=== PATIENT | male | born 1990 | race Caucasian/White ===

== ENCOUNTER 2017-12-18 18:45 | Emergency (ER) | payer SELFPAY ==
[~2017-12-18] VITALS: Ht 170.2 cm; Wt 77.1 kg
--- OUTSIDE RECORDS SUMMARY | 2017-12-18 18:50 | XMS REPORT | Continuity of Care Document ---
Author Author [facility] Organization [facility] Address Unknown Phone Unavailable Allergies There is no data. Medications There is no data. Problems There is no data. Procedures There is no data. Results There is no data. Encounters ACCT No. Visit Date/Time Discharge Status Pt. Type Provider Facility Loc./Unit Complaint [id number] 06/03/2016 10:33:55 ACT Unknown
--- OUTSIDE RECORDS SUMMARY | 2017-12-18 18:50 | XMS REPORT | Continuity of Care Document ---
Author Author Gissel O[facility] Gissel Odom [facility] Address Unknown Phone Unavailable Support Name Relationship Address Phone ABI CORRALES M.D. Caregiver [employer] [address] [place] [address] Unavailable SORIN WAYNE Next Of Kin [address] [facility] [place] [address] Insurance Providers Guarantor Ronen Meyer Address [address] [place] [address] Payer Self Pay Insurance Subscriber's Name Ronen Meyer Relationship 01 Self / Same As Patient Chief Complaint and Reason for Visit Chief Complaint Dental Pain Reason for Visit Dental abscess Problems Active Problems Medical Problem Onset Date Status Testicular pain, left Unknown Acute Past Problems Medical Problem Onset Date Dental abscess Unknown Medications Current Home Medications Medication Dose Units Route Directions Days Qty Instructions Start Date Amoxicillin 500 Mg Tab 500 Mg Oral Three Times A Day for Bactinf 30 Tablet 10/29/16 Hydrocodone-Acetaminophen ([place]) 5/325 Tab 1-2 Tab Oral Q4-6H as needed for Pain 12 Tablet 10/29/16 Social History Social History Problem Response Recorded Date/Time Onset Date Status Smoking Status Heavy Tobacco Smoker 10/29/2016 3:52am Not Applicable Not Applicable Query Response Start Date Stop Date Smoking Status Heavy Tobacco Smoker Hospital Discharge Instructions No hospital discharge instructions. Plan of Care Discharge Date 10/29/16 4:45am Disposition 01 HOME, SELF-CARE Condition at Discharge Stable Instructions/Education Provided Dental Abscess (ED) Prescriptions See Medication Section Additional Instructions/Education 1. Follow up with a dentist as soon as possible. 2. Take antibiotic as prescribed. 3. Use pain medication as needed. 4. Return to ER if worsening pain, increased swelling, fever, or other new concerns. Functional Status No functional status results. Allergies, Adverse Reactions, Alerts No known allergies. Immunizations No immunization records. Vital Signs Acute Vital Signs Vital Response Date/Time Blood Pressure 138/68 mm Hg 10/29/2016 3:49am Blood Pressure Mean 91 mm Hg 10/29/2016 3:49am Temperature (Fahrenheit) 97.6 degrees F (96.0 - 99.9) 10/29/2016 3:49am Temperature (Calculated Celsius) 36.26650 degrees C 10/29/2016 3:49am Temperature Source Oral 10/29/2016 3:49am Pulse Pulse Rate: ED 72 bpm 10/29/2016 3:49am Respiratory Rate 16 breaths per minute (10 - 20) 10/29/2016 3:49am Height (Feet) 5 ft 10/29/2016 3:49am Height (Inches) 7.0 in. 10/29/2016 3:49am Weight (Pounds) 180.0 lbs 10/29/2016 3:49am Height 5 ft 7 in 10/29/2016 3:49am Weight 180 lb 10/29/2016 3:49am Body Mass Index 28.2 kg/m^2 10/29/2016 3:49am Results No known relevant diagnostic tests, laboratory data and/or discharge summary. Procedures No known history of procedures. Encounters Encounter Location Arrival/Admit Date Discharge/Depart Date Attending Provider Departed Emergency Room [facility] 10/29/16 3:49am 4:45am ABI CORRALES M.D. Departed Emergency Room [facility] 10/12/14 8:10pm 9:57pm ILA DELATORRE M.D. Recent Diagnosis
[2017-12-18] MEDS ORDERED: RX-AMOX/CLAV. (AUGMENTIN) 500MG TAB PPK#2 PO STA (19:20)
[2017-12-18] MEDS ORDERED: AMOX500C2 PO (19:25)
[2017-12-18] MEDS ORDERED: HYDR-757 PO ×2 (19:25→19:38)
--- NOTE | 2017-12-18 19:26 | ED EENT ---
History of Present Illness General Chief Complaint: Dental Problems/Pain Stated Complaint: R SIDE DENTAL/GUM PAIN, R EAR PAIN Nursing Triage Note: PT PRESENTS TO ER WITH COMPLAINT OF RIGHT SIDED JAW PAIN. STATES HE FEELS LIKE HE HAS A BROKEN TOOTH. HAS NOT BEEN TO A DENTIST. Source: patient Exam Limitations: no limitations History of Present Illness Date Seen by Provider: Dec 18, 2017 Time Seen by Provider: 19:21 Initial Comments To ER with Right lower dental pain and jaw swelling x2 days, no fever. Timing/Duration: gradual Severity: moderate Location: mouth, dental Associated Symptoms: facial pain/swelling, tooth pain Allergies and Home Medications Allergies Coded Allergies: No Known Drug Allergies (Unverified , 12/18/17) Home Medications Amoxicillin 500 Mg Capsule, 500 MG PO TID Prescribed by: ARLYN LOPEZ on 12/18/171924 Hydrocodone/Acetaminophen 1 Each Tablet, 1 EACH PO Q4H PRN for PAIN-SEVERE Prescribed by: ARLYN LOPEZ on 12/18/171924 Patient Home Medication List Home Medication List Reviewed: Yes Review of Systems Constitutional: see HPI Eyes: No Symptoms Reported Ears: No Symptoms Reported Nose: no symptoms reported Mouth: see HPI, pain Respiratory: no symptoms reported Cardiovascular: no symptoms reported Musculoskeletal: no symptoms reported Skin: no symptoms reported Past Dpovjvb-Fskntk-Svrudx Hx Patient Social History Alcohol Use: Denies Use Recreational Drug Use: Yes Drug of Choice: MARIJUANA Smoking Status: Current Everyday Smoker Recent Foreign Travel: No Contact w/Someone Who Travel: No Recent Infectious Disease Expo: No Recent Hopitalizations: No Immunizations Up To Date Tetanus Booster (TDap): Unknown Seasonal Allergies Seasonal Allergies: No Past Medical History Surgeries: Yes (HERNIA RX) Orthopedic Respiratory: No Cardiac: No Neurological: No Genitourinary: No Gastrointestinal: Yes Abdominal Hernia Musculoskeletal: No Endocrine: No HEENT: No Cancer: No Psychosocial: No Integumentary: No Blood Disorders: No Physical Exam Vital Signs Vital Signs - First Documented 12/18/17 19:03 Temp 98.6 Pulse 92 Resp 20 B/P (MAP) 133/83 (100) Pulse Ox 98 O2 Delivery Room Air General Appearance: WD/WN, no apparent distress Eyes: bilateral eye normal inspection, bilateral eye PERRL, bilateral eye EOMI Ears: bilateral ear auricle normal, bilateral ear canal normal, bilateral ear TM normal Mouth/Throat: other (there is a palpable fluctuant abscess to right buccal mucosa. ) Neck: non-tender, full range of motion Gastrointestinal: non tender, soft Neurologic/Psychiatric: alert, normal mood/affect, oriented x 3 Skin: normal color, warm/dry Procedures/Interventions I&D : Blade Size: 10 Progress Inferior alveolar nerve block done with 1ml of 2% lidocaine with epi and 0.5ml of marcaine 0.5%. Incision made with 11 blade scalpel, large amount of purulent material expressed. Covered with gauze and hemostasis achieved Progress/Results/Core Measures My Orders Orders - ARLYN LOPEZ APRN Lidocaine/Epi 2% 1:100,000 (Xylocaine/Ep (12/18/17 19:30) Bupivacaine 0.5% Injection (Sensorcaine (12/18/17 19:30) Hydrocodone/Apap 5/325 Tablet (Lortab 5 (12/18/17 19:30) Rx-Amoxicillin/Clav Tab (Rx-Augmentin Ta (12/18/17 19:20) Medications Given in ED Current Medications Medications Dose Ordered Sig/Amparo Route Start Time Stop Time Status Last Admin Dose Admin Acetaminophen/ Hydrocodone Bitart 1 tab ONCE ONCE PO 12/18/17 19:30 18 19:31 DC 12/18/17 19:31 1 TAB Bupivacaine HCl 1 ml ONCE ONCE INJ 12/18/17 19:30 12/18/17 19:31 DC 12/18/17 19:31 1 ML Lidocaine/ Epinephrine 1 ml ONCE ONCE INJ 12/18/17 19:30 12/18/17 19:31 DC 12/18/17 19:31 1 ML Vital Signs/I&O 12/18/17 19:03 Temp 98.6 Pulse 92 Resp 20 B/P (MAP) 133/83 (100) Pulse Ox 98 O2 Delivery Room Air Blood Pressure Mean: 100 Departure Impression Primary Impression: Dental abscess Disposition: 01 HOME, SELF-CARE Condition: Stable Departure-Patient Inst. Decision time for Depature: 19:24 Referrals: NO,LOCAL PHYSICIAN (PCP/Family) Primary Care Physician Patient Instructions: Tooth Abscess (DC) Add. Discharge Instructions: 1. Return to ER for any concerns such as fevers 2. Antibiotics as directed 3. See your dentist LEO All discharge instructions reviewed with patient and/or family. Voiced understanding. Scripts Hydrocodone/Acetaminophen ([place] 5-325 Tablet) 1 Each Tablet 1 EACH PO Q4H PRN for PAIN-SEVERE, #14 TAB Do not fill unless amoxicillin is also filled. Prov: ARLYN LOPEZ APRN 12/18/17 Amoxicillin (Amoxicillin) 500 Mg Capsule 500 MG PO TID, #30 CAP Prov: ARLYN LOPEZ APRN 12/18/17 Work/School Note: Work Release Form Date Seen in the Emergency Department: Dec 18, 2017 Return to Work: Dec 20, 2017 ARLYN LOPEZ APRN Dec 18, 2017 19:26
[2017-12-18] MEDS ORDERED: BUPIVACAINE 0.5% 30 ML (SENSORCAINE) VIAL INJ ONE (19:30)
[2017-12-18] MEDS ORDERED: HYDROcodone/APAP 5 MG/325 MG (LORTAB) TAB PO ONE (19:30)
[2017-12-18] MEDS ORDERED: LIDOCAINE/EPI 2% 1:100,00 (XYLOCAINE) 20 ML VIAL INJ ONE (19:30)
[2017-12-18 19:42] VITALS: BP 133/83
== END 2017-12-18 19:42 | disposition home or self-care (01) ==
LOC: EDUNIT# 18:45 → ER 18:46
DX: K04.7 Periapical abscess without sinus (principal); F12.10 Cannabis abuse, uncomplicated; F17.200 Nicotine dependence, unspecified, uncomplicated; Z87.19 Personal history of other diseases of the digestive system
CPT/HCPCS: 41800; 64400

== ENCOUNTER 2019-12-27 12:39 | Emergency (ER) | payer MEDICAID, OTHER ==
[~2019-12-27] VITALS: Ht 170 cm; Wt 72.5 kg
[~2019-12-27 12:39] MED LIST: AMOX500C2 PO; HYDR-4226 PO
--- OUTSIDE RECORDS SUMMARY | 2019-12-27 13:06 | XMS REPORT | Continuity of Care Document ---
Author Author [facility] Organization [facility] Address Unknown Phone Unavailable Support Name Relationship Address Phone ILA DELATORRE M.D. Caregiver [employer] [address] [place] [address] SORIN WAYNE Next Of Kin [address] [place] [address] [employer] Insurance Providers Payer Name Policy Number Subscriber Name Relationship [facility] [id number] Ronen Meyer 0 1 Self / Same As Patient Chief Complaint and Reason for Visit Chief Complaint Testicular Pain Reason for Visit [id number] Problems Medical Problems Problem Onset Date Status Testicular pain, left Unknown Active Medications No known medications. Social History Social History Problem Response Recorded Date/Cain e Smoking Status Heavy Tobacco Smoker 10/12/2014 8:20pm Query Response Start Date Stop Date Smoking Status Heavy Tobacco Smoker Hospital Discharge Instructions No hospital discharge instructions. Plan of Care Discharge Date 10/12/14 9:57pm Disposition 01 HOME, SELF-CARE Condition at Discharge Improved/Stable Instructions/Education Provided Testicle Pain (ED) Prescriptions See Medications Section Referrals ADRIEL Morgan DO Additional Instructions/Education Follow up in the [facility] for re-evaluation and management Functional Status No functional status results. Allergies, Adverse Reactions, Alerts Allergen Type Severity Reaction Status Last Updated No Known Allergies Active Immunizations No immunization records. Vital Signs Acute Vital Signs Vital Response Date/Time Blood Pressure 136/60 mm Hg Blood Pressure Mean 85 mm Hg Temperature (Fahrenheit) 97.3 degrees F (96.0 - 99.9) Temperature (Calculated Celsius) 36.16783 degrees C Temperature Source Oral Pulse Pulse Rate: ED 77 bpm Respiratory Rate 16 breaths per minute (10 - 20) Height (Feet) 5 ft Height (Inches) 7 in. Weight (Pounds) 190 lbs Results No known relevant diagnostic tests, laboratory data and/or discharge summary. Procedures No known history of procedures. Encounters Encounter Location Date/Time Registered Emergency Room Gissel Odom [facility] 10/12 8:10pm Recent Diagnosis
[2019-12-27] MEDS ORDERED: ACETAMINOPHEN 325 MG TABLET PO STA (13:14)
[2019-12-27] MEDS ORDERED: TETANUS,DIPTH,PERTUSS P/F (BOOSTRIX) 0.5 ML VIAL IM ONE (13:15)
--- NOTE | 2019-12-27 13:51 | ED Upper Extremity ---
General Chief Complaint: Upper Extremity Stated Complaint: R HAND INJ Nursing Triage Note: [place] R hand in thorns. Pt reports pain has gotten worse. Nursing Sepsis Screen: No Definite Risk History of Present Illness Date Seen by Provider: Dec 27, 2019 Time Seen by Provider: 13:05 Initial Comments 29-year-old male presents for right hand pain and swelling [place] He pulled a few thorns out of his hand. He was also catching catfish and isn't sure if he got bit. Unsure of his last tetanus vaccine. Onset: other (2 days ago) Pain/Injury Location: right hand Method of Injury: unknown Modifying Factors: Improves With Rest Allergies and Home Medications Allergies Coded Allergies: No Known Drug Allergies (Unverified , 12/18/17) Home Medications Amoxicillin 500 Mg Capsule, 500 MG PO TID Prescribed by: ARLYN LOPEZ on 12/18/171924 Hydrocodone/Acetaminophen 1 Each Tablet, 1 EACH PO Q4H PRN for PAIN-SEVERE Do not fill unless amoxicillin is also filled. Prescribed by: ARLYN LOPEZ on 12/18/171937 Patient Home Medication List Home Medication List Reviewed: Yes Review of Systems Constitutional: no symptoms reported, see HPI Musculoskeletal: no symptoms reported, joint swelling (2nd MCP) Skin: see HPI, change in color (erythema right hand at the base of the second finger); No pruritus, No rash All Other Systems Reviewed Negative Unless Noted: Yes Past Pwwnjqo-Uwepcx-Jszand Hx Past Med/Social Hx: Reviewed Nursing Past Med/Soc Hx Patient Social History Alcohol Use: Denies Use Recreational Drug Use: No Drug of Choice: MARIJUANA Smoking Status: Never a Smoker Recent Foreign Travel: No Contact w/Someone Who Travel: No Recent Infectious Disease Expo: No Recent Hopitalizations: No Immunizations Up To Date Tetanus Booster (TDap): Unknown Seasonal Allergies Seasonal Allergies: No Past Medical History Surgeries: Yes (HERNIA RX, collar bone) Appendectomy, Orthopedic Respiratory: No Cardiac: No Neurological: No Genitourinary: No Gastrointestinal: Yes Abdominal Hernia Musculoskeletal: No Endocrine: No HEENT: No Cancer: No Psychosocial: No Integumentary: No Blood Disorders: No Physical Exam Vital Signs Vital Signs - First Documented 12/27/19 12:52 Temp 36.7 Pulse 96 Resp 20 B/P (MAP) 115/79 (91) Pulse Ox 96 O2 Delivery Nasal Cannula Capillary Refill : Less Than 3 Seconds Height, Weight, BMI Height: 5'7.00" Weight: 170lbs. oz. 77.802240zk; 25.00 BMI Method:Stated General Appearance: WD/WN, no apparent distress Cardiovascular: normal peripheral pulses, regular rate, rhythm Respiratory: chest non-tender, lungs clear Hand: normal ROM, Right, soft tissue tenderness, swelling (2nd finger base and over 2nd metacarpal, dorsal surface. Full ROM to 2nd finger. Mild induration, no fluctuance. ) Neurologic/Tendon: normal sensation, normal motor functions, normal tendon functions Neurologic/Psychiatric: no motor/sensory deficits, alert, normal mood/affect, oriented x 3 Progress/Results/Core Measures Results/Orders My Orders Orders - SHIVAM LOBO Dipht,Pertuss(Acell),Tet Adult (Boostrix (12/27/19 13:15) Acetaminophen Tablet/Caplet (Tylenol T (12/27/19 13:14) Hand, Right, 3 Views (12/27/19 13:15) Medications Given in ED Current Medications Medications Dose Ordered Sig/Amparo Route Start Time Stop Time Status Last Admin Dose Admin Diphtheria/ Tetanus/Acell Pertussis 0.5 ml ONCE ONCE IM 12/27/19 13:15 12/27/19 13:16 DC 12/27/19 13:37 0.5 ML Vital Signs/I&O 12/27/19 12:52 Temp 36.7 Pulse 96 Resp 20 B/P (MAP) 115/79 (91) Pulse Ox 96 O2 Delivery Nasal Cannula Blood Pressure Mean: 91 Diagnostic Imaging Diagonstic Imaging: Xray Plain Films/CT/US/NM/MRI: hand Comments NAME: PATI AVILES MED REC#: [id number] PT STATUS: REG ER : 1990 PHYSICIAN: SHIVAM LOBO ADMIT DATE: 12/27/19/ER Draft Date of Exam:12/27/19 HAND, RIGHT, 3 VIEWS INDICATION: Injury to right hand. TECHNIQUE: AP, oblique, and lateral views of the right hand were obtained. FINDINGS: No fracture or acute bony abnormality is seen. The joint spaces appear unremarkable. IMPRESSION: Negative right hand. Dictated on workstation # [id number] Dict: 12/27/19 1355 Trans: 12/27/19 1358 [id number] Interpreted by: PHILIPP RAMOS MD Electronically signed by: Reviewed: Reviewed by Me Departure Impression Primary Impression: Cellulitis of right hand Disposition: HOME, SELF-CARE Condition: Improved Departure-Patient Inst. Decision time for Depature: 14:05 Referrals: [facility] NO,LOCAL PHYSICIAN (PCP) Primary Care Physician Patient Instructions: Cellulitis (Skin Infection), Adult (DC) Add. Discharge Instructions: Keep wound clean and dry, wash with soap and water. Apply peroxide 3-4 times daily. Follow-up at [facility] if symptoms are not improving or worsen. Take antibiotics as prescribed. Alternate between Tylenol 650 mg and ibuprofen 600 mg every 4 hours for pain or fever. Return to the emergency department for new, urgent health care needs. All discharge instructions reviewed with patient and/or family. Voiced understanding. Scripts Clindamycin HCl (Clindamycin HCl) 300 Mg Capsule 300 MG PO TID, #21 CAP 0 Refills Prov: SHIVAM LOBO 12/27/19 SHIVAM LOBO Dec 27, 2019 13:51
--- NOTE | 2019-12-27 13:58 | Diagnostic Imaging Report ---
INDICATION: Injury to right hand. TECHNIQUE: AP, oblique, and lateral views of the right hand were obtained. FINDINGS: No fracture or acute bony abnormality is seen. The joint spaces appear unremarkable. IMPRESSION: Negative right hand. Dictated by: Dictated on workstation # [id number]
[2019-12-27] MEDS ORDERED: CLIN300C11 PO (14:09)
[2019-12-27] MEDS ORDERED: LIDOCAINE 1% INJ 20 ML 20 ML VIAL INJ ONE (14:15)
[2019-12-27] MEDS ORDERED: cefTRIAXone 1,000 MG/2.86 ml vial (IM ONLY) IM ONE (14:15)
[2019-12-27 14:49] VITALS: BP 120/82
== END 2019-12-27 14:49 | disposition home or self-care (01) ==
LOC: EDUNIT# 12:39 → ER 12:42
DX: L03.113 Cellulitis of right upper limb (principal)
CPT/HCPCS: 73130; 90715